=== PATIENT | male | born 1945 | race Caucasian/White ===

== ENCOUNTER 2016-10-09 11:24 | Day surgery (SDC) | payer MEDICARE ==
[~2016-10-09] VITALS: Ht 185.4 cm; Wt 116.6 kg
[2016-10-09] MEDS ORDERED: NS 1000P @30 MLS/HR (KVO) IV SCH (12:00)
[2016-10-09 12:05] VITALS: BP 145/87; PULSE 70; RESP 16; TEMP 98.2; O2SAT 96
[2016-10-09] MEDS ORDERED: BUME0.5T PO (12:13)
[2016-10-09] MEDS ORDERED: ISOS60TA PO (12:13)
[2016-10-09] MEDS ORDERED: ASPI81CH PO (12:13)
[2016-10-09] MEDS ORDERED: ATOR10TA15 PO (12:13)
[2016-10-09] MEDS ORDERED: LISI40TA PO (12:13)
[2016-10-09] MEDS ORDERED: OMEP20CA2 PO (12:13)
[2016-10-09] MEDS ORDERED: MULT1CHW70 PO (12:13)
[2016-10-09] MEDS ORDERED: ALFU10TA2 PO (12:13)
[2016-10-09] MEDS ORDERED: LATA.005%O EACH EYE (12:13)
[2016-10-09] MEDS ORDERED: METO25TA3 PO (12:13)
[2016-10-09] MEDS ORDERED: APIX5TAB PO (12:13)
[2016-10-09 12:29] LABS: AUTOMATED NEUTROPHIL # 2.8 TH/MM3 (1.8-7.7); BASOPHIL % 0.5 % (0.0-2.0); EOSINOPHIL # 0.2 TH/MM3 (0-0.4); EOSINOPHIL % 4.2 % (0.0-4.0); HEMATOCRIT 40.3 % (39.0-51.0); HEMO FLAGS DIFF FINAL; LYMPH % 32.7 % (9.0-44.0); LYMPHOCYTE # 1.6 TH/MM3 (1.0-4.8); MEAN CORPUSCULAR HEMOGLOBIN 29.3 PG (27.0-34.0); MONO % 7.7 % (0.0-8.0); NEUT % 54.9 % (16.0-70.0); PLATELET COUNT 176 TH/MM3 (150-450); RED BLOOD COUNT 4.53 MIL/MM3 (4.50-5.90); RED CELL DISTRIBUTION WIDTH 12.8 % (11.6-17.2)
[2016-10-09 12:36] LABS: APTT (PATIENT) 25.6 SEC (24.3-30.1); INTERNATIONAL NORMALIZED RATIO 1.1 RATIO; PROTHROMBIN TIME - PATIENT 11.9 SEC (9.8-11.6)
[2016-10-09 12:40] LABS: BICARBONATE 26.8 MEQ/L (21.0-32.0)
[2016-10-09] MEDS ORDERED: HEPARIN-NS/PF INJ 500 ML ONE (13:45)
[2016-10-09] MEDS ORDERED: diphenhydrAMINE HCL 50 MG/ML VIAL ONE (13:46)
[2016-10-09] MEDS ORDERED: HYDROCORTISONE SOD SUCCINATE 100 MG VIAL ONE (13:46)
[2016-10-09] MEDS ORDERED: HEPARIN SODIUM - IV 10,000 UNITS/10 ML VIAL ONE (13:46)
[2016-10-09] MEDS ORDERED: VERAPAMIL HCL 5 MG/2 ML VIAL ONE (13:46)
[2016-10-09] MEDS ORDERED: NITROGLYCERIN INJ 5 ML ONE (13:46)
[2016-10-09] MEDS ORDERED: MIDAZOLAM HCL 2 MG/2 ML VIAL ONE (13:48)
[2016-10-09] MEDS ORDERED: RANO500 PO (14:51)
[2016-10-09] MEDS ORDERED: MISC INFORMATION XX ONE (15:00)
[2016-10-09] MEDS ORDERED: SODIUM CHLORIDE 0.9% FLUSH 5 ML FLUSH IVF PRN (15:00)
--- NOTE | 2016-10-09 15:07 | MA ---
cc: TEAGAN FREDERICK M.D. DATE: 10/09/2016 PROCEDURE Left heart catheterization, selective coronary angiography, left ventriculography. PROCEDURE NOTES The patient was brought to the cardiac catheterization laboratory in a fasting state after having signed informed consent. The right radial region was prepped and draped as per policy and anesthetized with 1% lidocaine. Arterial access was obtained via the right radial artery and a 6-Mauritanian sheath placed. Coronary arteriography was performed using a [place] catheter. Additional views were taken using a Gabe left 3.0 and a Gabe right 5.0 catheter. Left ventriculography was done using a multipurpose catheter. There were no apparent immediate complications. A TR band was applied to his right wrist to achieve good hemostasis. HEMODYNAMIC DATA Left ventricle 139 with an end-diastolic pressure of 19. Aorta 140/70 with a mean of 97. There was no significant transvalvular aortic gradient on pullback of the pigtail catheter. CORONARY ARTERIOGRAPHY The left main is a short vessel with no definite disease. The left anterior descending has 20% ostial stenosis. There appears to be a relatively long stent in the proximal LAD and there is mild diffuse re-stenosis of this stent up to 10% severity. The mid LAD has diffuse disease up to 10% severity. The distal LAD has minimal luminal irregularities. The LAD gives rise to a large branching diagonal which demonstrates a stent in its proximal portion. There is mild diffuse re-stenosis of the stent possibly up to 20% severity. The left circumflex is a small to medium size vessel giving rise to a large first obtuse marginal and relatively large second obtuse marginal. There appears to be a stent in the proximal portion of the first obtuse marginal and there is mild diffuse re-stenosis of this stent. At the ostium of the first obtuse marginal there is 50-60% stenosis. The second obtuse marginal has mild disease at its ostium and in its midportion where there is up to 15% stenosis. The mid left circumflex, right before the takeoff of the second obtuse marginal, has 30-40% tubular stenosis. The right coronary artery is a large dominant vessel with overall diffuse mild luminal irregularities resulting in up to 15-20% stenosis except in the distal vessel, right after the takeoff of a large posterior descending artery, where there is 60-70% stenosis. LEFT VENTRICULOGRAPHY Contrast injection of the left ventricle reveals no definite segmental wall motion abnormalities. Ejection fraction is estimated at 50%. CONCLUSIONS 1. Overall mild to moderate three-vessel coronary artery disease with persistent patency of proximal LAD, proximal diagonal, proximal obtuse marginal stents. 2. Low normal left ventricular systolic function with estimated ejection fraction of 50%. DISCUSSION The patient has borderline disease in the distal right coronary, right after the takeoff of the posterior descending artery. This region would be difficult to stent without plaque shift into the large posterior descending artery. He will be treated medically. This distal vessel also supplies a relatively small territory. MD TRISTAN Napoles/FARAZ /2:43 PM /2:56 PM MTDD
[2016-10-09] MEDS ORDERED: IODIXANOL 320 MG/ML 100 ML VIAL (for Cath Lab) OTHER ONE (16:22)
[2016-10-09] MEDS ORDERED: SODIUM CHLORIDE 0.9% FLUSH 5 ML FLUSH IVF SCH (21:00)
--- NOTE | 2016-10-10 21:23 | EKG ---
Date Performed: 10/09/2016 Time Performed: 12:31:20 PTAGE: 70 years EKG: Demand pacing LVH with secondary repolarization abnormality Extensive ST-T changes may be d ue to hypertrophy and/or ischemia Abnormal ECG NO PREVIOUS TRACING DOCTOR: Simón Barron Interpretating Date/Time 10/10/2016 21:11:24
== END 2016-10-09 21:18 | disposition home or self-care (01) ==
LOC: HDOC 11:24 → HDIC 11:26 → HDOC 21:18
PROVIDERS: ATTEND Internal Medicine Cardiovascular Disease
DX: I25.10 Atherosclerotic heart disease of native coronary artery without angina pectoris (principal)
CPT/HCPCS: 80048; 85025; 85610; 85730; 93005; 93458; C1769; C1893; J1200; J1644; J1720; J2250; J3010; J7030; Q9967

== ENCOUNTER 2016-10-16 06:34 | Day surgery (SDC) | payer MEDICARE ==
[~2016-10-16 06:34] MED LIST: ALFU10TA2 PO; APIX5TAB PO; ASPI81CH PO; ATOR10TA15 PO; BUME0.5T PO; ISOS60TA PO; LATA.005%O EACH EYE; LISI40TA PO; METO25TA3 PO; MULT1CHW70 PO; OMEP20CA2 PO; RANO500 PO
[2016-10-16] MEDS ORDERED: RANO500 PO (07:42)
[2016-10-16] MEDS ORDERED: INSULIN HUMAN REGULAR 1,000 UNITS/10 ML VIAL SQ PRN (08:30)
[2016-10-16] MEDS ORDERED: METOPROLOL TARTRATE 25 MG TAB PO PRN (08:30)
[2016-10-16] MEDS ORDERED: LACTATED RINGER'S 1000 ML IV SCH (08:30)
[2016-10-16] MEDS ORDERED: SODIUM CHLORID 0.9% 500 ML IV SCH (08:30)
[2016-10-16] MEDS ORDERED: PROPOFOL 200 MG/20 ML AMP IV ONE (12:26)
--- NOTE | 2016-10-16 16:15 | MR ---
cc: TULIO FREDERICK DATE: 10/16/2016 PROCEDURE Electrical cardioversion of atrial tachycardia/flutter. PROCEDURE NOTE The patient was brought to the DOC Unit in a fasting state after having signed informed consent. His underlying rhythm was verified by interrogation of his pacemaker. The rhythm is shown to be an atrial tachycardia/flutter with an atrial rate of approximately 212 beats per minute. The patient was sedated by the Anesthesiology staff. Then, 200 synchronized joules were delivered converting the patient to an atrial sensed ventricular paced rhythm. There were no apparent immediate complications. CONCLUSION0 Successful electrical cardioversion of atrial tachycardia/flutter to sinus rhythm, MD TRISTAN Napoles/CARL /3:52 PM /4:22 PM GM
--- NOTE | 2016-10-18 17:02 | EKG ---
Date Performed: 10/16/2016 Time Performed: 08:59:16 PTAGE: 70 years EKG: Atrial pacing Prolonged QT interval LVH with secondary repolarization abnormality Extensive ST-T changes may be due to hypertrophy and/or ischemia Abnormal ECG PREVIOUS TRACING : 10/16/2016 07.18 Compared to the previous tracing, Ventricular pacing is no longer present DOCTOR: Bahman Quinones Interpretating Date/Time 10/18/2016 17:00:07
--- NOTE | 2016-10-18 17:02 | EKG ---
Date Performed: 10/16/2016 Time Performed: 07:18:38 PTAGE: 70 years EKG: Ventricular pacing Abnormal ECG PREVIOUS TRACING : 10/09/2016 12.31 Compared to prior tracing no significant change DOCTOR: Bahman Quinones Interpretating Date/Time 10/18/2016 17:01:18
== END 2016-10-16 09:56 | disposition home or self-care (01) ==
LOC: HDOC 06:34 → HDIC 06:35 → HDOC 09:56
PROVIDERS: ATTEND Internal Medicine Cardiovascular Disease
DX: I48.0 Paroxysmal atrial fibrillation (principal); I25.10 Atherosclerotic heart disease of native coronary artery without angina pectoris; I10 Essential (primary) hypertension; E78.5 Hyperlipidemia, unspecified; I42.9 Cardiomyopathy, unspecified
CPT/HCPCS: 92960; 93005

== ENCOUNTER 2017-07-22 12:51 | Day surgery (SDC) | payer MEDICARE ==
[~2017-07-22] VITALS: Ht 185.4 cm; Wt 118.5 kg
[2017-07-22] MEDS ORDERED: IOHEXOL 350 MG/ML 100 ML BTL (for Cath Lab) OTHER ONE (12:52)
[2017-07-22 13:41] VITALS: BP 159/89; PULSE 86; RESP 18; TEMP 98.5; O2SAT 95
[2017-07-22] MEDS ORDERED: MULTTAB67 PO (13:43)
[2017-07-22] MEDS ORDERED: NS 1000P @30 MLS/HR (KVO) IV SCH (14:15)
[2017-07-22 14:30] LABS: PROTHROMBIN TIME - PATIENT 11.5 SEC (9.8-11.6)
[2017-07-22 14:39] LABS: CALCIUM 8.7 MG/DL (8.5-10.1); CREATININE 0.77 MG/DL (0.60-1.30)
[2017-07-22] MEDS ORDERED: MIDAZOLAM HCL 2 MG/2 ML VIAL ONE (15:05)
[2017-07-22] MEDS ORDERED: BIVALIRUDIN 250 MG VIAL ONE (15:05)
[2017-07-22] MEDS ORDERED: HEPARIN-NS/PF INJ 1,000 ML ONE (15:05)
[2017-07-22] MEDS ORDERED: HYDROCORTISONE SOD SUCCINATE 100 MG VIAL ONE (15:06)
[2017-07-22 15:10] LABS: AUTOMATED NEUTROPHIL # 3.5 TH/MM3 (1.8-7.7); BASOPHIL % 0.4 % (0.0-2.0); EOSINOPHIL # 0.3 TH/MM3 (0-0.4); EOSINOPHIL % 4.6 % (0.0-4.0); HEMATOCRIT 41.6 % (39.0-51.0); HEMOGLOBIN 13.7 GM/DL (13.0-17.0); LYMPH % 26.8 % (9.0-44.0); LYMPHOCYTE # 1.6 TH/MM3 (1.0-4.8); MEAN CELL VOLUME 91.1 FL (80.0-100.0); MEAN CORPUSCULAR HEMOGLOBIN 30.1 PG (27.0-34.0); MEAN CORPUSCULAR HGB CONC 33.1 % (32.0-36.0); MEAN PLATELET VOLUME 8.6 FL (7.0-11.0); MONO % 8.6 % (0.0-8.0); MONOCYTE # 0.5 TH/MM3 (0-0.9); NEUT % 59.6 % (16.0-70.0); PLATELET COUNT 181 TH/MM3 (150-450); RED BLOOD COUNT 4.56 MIL/MM3 (4.50-5.90); RED CELL DISTRIBUTION WIDTH 12.8 % (11.6-17.2); WHITE BLOOD COUNT 5.8 TH/MM3 (4.0-11.0)
[2017-07-22] MEDS ORDERED: HEPARIN SODIUM - IV 10,000 UNITS/10 ML VIAL ONE (15:26)
[2017-07-22] MEDS ORDERED: ADENOSINE STRESS TEST INJ 90 MG/30 ML VIAL ONE (15:26)
--- NOTE | 2017-07-22 16:16 | CATHPROC ---
[facility] HIS Report Study Information Study Number Admission Scheduled Start Study Start [id number] Jul 22 2017 12:51PM 07/22/2017 Jul 22 2017 2:59PM [facility] Cardiac Pacer/ICD Admit Source Facility Department Other [facility] - Business Mgr Physician and Clinical Staff Initial eG[employer] Yacht Rigger Juan Ramon RN, David RecordGael Lubin,RT(R) Scrub Shankar Ventura,RT(R) Procedures Performed Procedure Location (Site) Vessel Name Angiogram LV LV Ventricle Coronary Angiograms LCA Left Coronary Coronary Angiograms RCA Right Coronary L Heart Cath Wire insertion Fem Art (right) Femoral Art Equipment Time Physics Tutor Description Size Mfg Part Number Used/Scraped TRANSDUCER, TRUWAVE [id number] 15:16 BAZZI POLK * Used W/STOCKCOCK *[id number] VASCADE, FR6 CLOSURE SYSTEM [id number] 16:02 mymxlog MEDICAL FR 6\7 Used TAVR *[id number] TAVR [id number] *[id number] *[id number] PIGTAIL ANG. 145 INFINITI [id number] CATHETER *[id number] 15:16 [employer] INDUSTRIES PACK, CCL CUSTOM * Used *[id number] 15:16 [employer] PACER PEN, SKIN DUAL W/ RULER * Used *[id number] 15:16 [employer] MEDICAL SHEATH, FR6.5 PRELUDE 11CM FR 6.5 038ACT Used *[id number] 15:16 [employer] MEDICAL WIRE, 3MMJ .035 180CM 180CM Used *[id number] 15:16 NAMIC MANIFOLD, 4 PORT * Used *[id number] 15:16 NYCOMED OMNIPAQUE, 350 MG, 150ML 150ML [id number] Used 15:59 NYCOMED OMNIPAQUE, 350 MG, 50ML 50ML [id number] Used [id number] 15:16 [employer]NELL[employer] MEDICAL BLANKET,WARM AIR CCL * Used *[id number] 15:40 [place] PRIME WIRE, VERRATA 185CM 185CM 01206 *[id number] Used Equipment Model, Serial, Lot Number and Expiration Data Description Model Number Serial Number Lot Number Expiration Date PRIME WIRE, VERRATA 185CM [id number] 05-22-2020 History: Allergies Allergy Reaction shellfish derived History: Risk Factors Family History of Hypertension Dyslipidemia Previous LA Previous Heart Failure Premature CAD Yes Yes No No No Prior Valve Prior PCI Prior PCIDate Prior CABG Surgery No Yes 10/09/2016 No Cerebrovascular Peripheral Artery Chronic Lung On Dialysis Diabetes Diabetes Therapy Disease Disease Disease No No No No Yes Diet History: CV Disease Selection Items Known CAD History: Stress Tests Stress or Imaging Studies Performed No History: Other Disease Selection Items CAD HTN History: Other Current Smoker Method Quit Packs a Day Years Used Pack Years No Cigarettes 48 Years Ago 1 5 5 Labs Hgb (g/dl) Hct (%) RBC (MIL/MM3) WBC (l/cumm) Platelets (thousands) 11.60-17.00 35.00-51.00 4.00-5.90 4.00-11.00 150.00-450.00 13.7 41.6 4.5 5.8 181 Glucose (mg/dl) BUN (mg/dl) Creatinine (mg/dl) BUN:Creatinine (1:x) 74.00-106.00 7.00-18.00 0.50-1.30 10.00-20.00 106 17 0.7 24.3 Na (meq/l) K (meq/l) Cl (meq/l) CO2 (mmol/L) Ca (mg/dl) 136.00-145.00 3.50-5.10 98.00-107.00 21.00-32.00 8.50-10.10 141 4.6 108 26 8.7 PT (sec) PTT (sec) INR (PTT:PT) 9.80-11.60 24.30-30.10 0.90-1.10 11.5 23.8 1 CPK-MB (ng/ML) 0.50-3.60 Not Drawn Medication Medication Total Dose (Bolus/Oral) Medication Total Dosage/Unit 1% XYLOCAINE 20 mL FENTANYL 100 mcg HEPARIN 8500 units SOLU-CORTEF 50 mg VERSED 2 mg Medications (Bolus/Oral) Medication Time Given Dosage/Unit Administered By Reason SOLU-CORTEF 07/22/2017 3:20:16 PM 50 mg David Delatorre RN 50 mg SOLU-CORTEF given in lab by David Delatorre RN in Right Hand via Peripheral IV. VERSED 07/22/2017 3:32:27 PM 2 mg David Delatorre RN 2 mg VERSED given in lab by David Delatorre RN in Right Hand via Peripheral IV. 1% XYLOCAINE 07/22/2017 3:33:02 PM 20 mL Heron, Geoff 20 mL 1% XYLOCAINE given in lab by Geoff Shelby in Right Groin via Subcutaneous. FENTANYL 07/22/2017 3:33:45 PM 50 mcg Heron, Geoff 50 mcg FENTANYL given in lab by Geoff Shelby in Right Hand via Peripheral IV. HEPARIN 07/22/2017 3:36:12 PM 8500 units David Delatorre RN 8500 units HEPARIN given in lab by David Delatorre RN in Right Hand via Peripheral IV. FENTANYL 07/22/2017 3:47:30 PM 50 mcg Heron, Geoff 50 mcg FENTANYL given in lab by Geoff Shelby in Right Hand via Peripheral IV. Medication (Drip) Medication Time Given Dosage/Unit Concentration/Unit Diluent (ml) Solution ADENOSINE DRIP 07/22/2017 3:52:21 PM 140 mcg/kg/min 90 mg 90 NaCl .9 140 mcg/kg/min ADENOSINE DRIP given in lab by David Delatorre RN in Right Hand via Peripheral IV. Pump/D rip Flow = 995.4 ml/hr using NaCl .9 with a concentration of 90 mg in 90 ml. ADENOSINE DRIP 07/22/2017 3:55:29 PM 140 units/hr 0 D5W STOPPED 140 units/hr ADENOSINE DRIP STOPPED given in lab by David Delatorre RN. Pump/Drip Flow = 0 ml/hr using D 5W. IV Solutions 07/22/2017 2:59:04 PM 0 mL (IV) 500 NaCl .9 IV Solutions given in lab by David Delatorre RN in Right Hand via Peripheral IV. Pump/Drip Flow = 20 ml/ hr using NaCl .9. Initial Case Assessment Cardiovascular HR Rhythm NIBP Chest Pain 70 Paced 157/87 0 Edema Present Skin color Skin None Normal Warm Dry Circulatory - Right Pulses Dorsalis Pedis Femoral 2 2 Scale (0,1,2,3,4,d) Circulatory - Left Pulses Dorsalis Pedis Femoral 2 2 Scale (0,1,2,3,4,d) Neurological State Oriented to time-place- Alert Moves all extremities person Respiration - General Respiration Rate SpO2 (%) O2 (lpm) (B/min) 27 97 0 Final Case Assessment Cardiovascular HR Rhythm NIBP Chest Pain 79 Paced 138/76 0 Edema Present Skin color Skin None Normal Warm Dry Circulatory - Right Pulses Dorsalis Pedis Femoral 2 2 Scale (0,1,2,3,4,d) Circulatory - Left Pulses Dorsalis Pedis Femoral 2 2 Scale (0,1,2,3,4,d) Neurological State Oriented to time-place- Alert Moves all extremities person Respiration - General Respiration Rate SpO2 (%) O2 (lpm) (B/min) 27 97 0 Chronological Log Time Study Chronological Log 14:58:44 Patient arrived via Bed. 14:58:45 Patient Name, D.O.B, / Armband Verified By R.N. 14:58:45 Consent signed by the physician and the patient and verified by the Business Mgr staff. 14:58:46 Pre-op and post- op instructions given; patient acknowledges understanding of instructions. Verbal Stimulation=~VERBAL~ Physical Stimulation=~PHYSICAL~ Airway=~AIRWAY~ Respiration=~RESPIR ATION~ 14:58:47 TOTAL=~TOTAL~. (0=absent, 1=limited, 2=present) 14:58:48 Presedation assessment performed by Business Mgr RN. 14:58:56 Patient has been NPO for More than 6Hrs. 14:58:57 Skin Breakdown- 14:58:59 Patient Warmer Placed on the Table. 14:59:00 Eli Prominences Protected 14:59:02 A # ~SIZE~ IV was noted in the Antecubital (left). Grade = ~GRADE~ Not working, going to re start another IV. 14:59:04 IV Solutions given in lab by David Delatorre RN in Right Hand via Peripheral IV. Pump/Drip Art w = 20 ml/hr using NaCl .9. 14:59:08 History and physical on the chart or being dictated. 15:13:48 Reference ECG taken 15:16:50 A # 20 IV was noted in the Hand (right). Grade = 0 IV Started in Lab Assessment: Initial Case, HR=70 BPM, Rhythm=Paced, OKZR=602/87 mmhg, Chest Pain=0, Edema=None, Color=Normal, Skin = Warm, Dry Right Pulses: Barrett Ped=2, Femoral=2 15:18:16 Left Pulses: Barrett Ped=2, Femoral=2 Neurological: State=Alert, Ox3, DENT Respiration: Resp=27 B/min, SpO2=97 %, O2=0 lpm Vitals capture started with the following parameters, Patient=Adult, Interval=5 min, Initial Pr qfredw=602 mmHg, 15:18:18 Deflation Rate=5 mmHg, Cuff placed on Right Arm 15:18:22 Bilateral groins prepped with 2% chlorhexidine, and draped after a 3 minute waiting time. 15:19:30 HR=63 bpm, UVSU=956/87 mmhg, SpO2=97.0 %, Resp=21 B/min, Pain=0, Dixie=10, Wilson=2 15:20:16 50 mg SOLU-CORTEF given in lab by David Delatorre RN in Right Hand via Peripheral IV. 15:22:09 Pressure channel 1 zeroed. 15:24:01 HR=72 bpm, NQTE=663/99 mmhg, SpO2=97.0 %, Resp=10 B/min, Pain=0, Dixie=10, Wilson=2 15:25:15 MD paged 15:29:02 HR=81 bpm, PBDI=486/83 mmhg, SpO2=97.0 %, Resp=8 B/min, Pain=0, Dixie=10, Wilson=2 15:30:13 MD arrived. Time Out. Correct patient, correct procedure, correct physician, power injector loaded, or not loaded with contrast with 15:32:00 surgical team present. Time Out Concurred by MD and individual staff in procedure. 15:32:27 2 mg VERSED given in lab by David Delatorre RN in Right Hand via Peripheral IV. 15:32:30 Case Start 15:33:02 20 mL 1% XYLOCAINE given in lab by Geoff Shelby in Right Groin via Subcutaneous. 15:33:45 50 mcg FENTANYL given in lab by Geoff Shelby in Right Hand via Peripheral IV. 15:33:53 Access site was Right Femoral Artery. 15:34:03 HR=82 bpm, EJAL=142/83 mmhg, SpO2=96.0 %, Resp=12 B/min, Pain=0, Dixie=10, Wilson=2 15:34:16 A SHEATH, FR6.5 PRELUDE 11CM FR 6.5 was advanced into the Fem Art (right) using the Percuta neous technique. A JL 4.0 INFINITI CATHETER FR 6 was advanced over a wire. OMNIPAQUE, 350 MG, 150ML 150ML was us ed for 15:35:29 injections. 15:36:12 8500 units HEPARIN given in lab by David Delatorre RN in Right Hand via Peripheral IV. Recorded Pressure: Ao, HR=82, Condition=Condition 1 15:37:03 (Aorta) Ao 132/69/96 15:37:44 The LCA was injected and visualized at various angles. OMNIPAQUE, 350 MG, 150ML 150ML used . 15:39:00 HR=79 bpm, JXMV=504/84 mmhg, SpO2=95.0 %, Resp=10 B/min, Pain=0, Dixie=10, Wilson=2 15:39:10 Catheter was removed A HS SH GUIDE CATHETER FR 6 was advanced over a wire. OMNIPAQUE, 350 MG, 150ML 150ML was used f or 15:40:02 injections. 15:41:01 The RCA was injected and visualized at various angles. OMNIPAQUE, 350 MG, 150ML 150ML used . 15:42:03 Activated Clotting Time Drawn 15:43:55 HR=87 bpm, KHCJ=363/107 mmhg, SpO2=97.0 %, Resp=9 B/min, Pain=0, Dixie=10, Wilson=2 15:45:10 A PRIME WIRE, VERRATA 185CM 185CM was inserted via Fem Art (right). 15:46:55 ACT (Normal Range 90-180) = 264 15:47:30 50 mcg FENTANYL given in lab by Geoff Shelby in Right Hand via Peripheral IV. 15:49:39 HR=90 bpm, KGAT=162/79 mmhg, SpO2=96.0 %, Resp=9 B/min, Pain=0, Dixie=10, Wilson=2 140 mcg/kg/min ADENOSINE DRIP given in lab by David Delatorre RN in Right Hand via Peripheral IV. Pump/Drip Flow = 15:52:21 995.4 ml/hr using NaCl .9 with a concentration of 90 mg in 90 ml. 15:53:53 Flow Wire was was placed in the RCA. The FFR measures 93 percent. The IFR measures 99 Perc ent. 15:53:59 HR=64 bpm, EIFQ=523/80 mmhg, SpO2=96.0 %, Resp=16 B/min, Pain=0, Dixie=10, Wilson=2 15:55:29 140 units/hr ADENOSINE DRIP STOPPED given in lab by David Delatorre RN. Pump/Drip Flow = 0 ml/ hr using D5W. 15:56:45 Wire removed 15:56:58 Catheter was removed A PIGTAIL ANG. 145 INFINITI CATHETER FR 6 was advanced over a wire. OMNIPAQUE, 350 MG, 150ML 15 0ML was 15:58:18 used for injections. Recorded Pressure: LV, HR=80, Condition=Condition 1 15:58:43 (Left Ventricle) LV 141/4/20 15:59:00 HR=78 bpm, SMVT=428/76 mmhg, SpO2=95.0 %, Resp=11 B/min, Pain=0, Dixie=10, Wilson=2 15:59:03 The LV was injected at 10 cc/sec for a total of 30. OMNIPAQUE, 350 MG, 50ML 50ML used. Recorded Pressure: LV, Ao, HR=80, Condition=Condition 1 16:00:07 (Left Ventricle) LV 161/-3/16, (Aorta) Ao 148/69/105 16:00:16 Catheter was removed 16:01:59 An injection in the Fem Art (right) was made through the SHEATH, FR6.5 PRELUDE 11CM FR 6.5. 16:02:07 VASCADE, FR6 CLOSURE SYSTEM TAVR FR 6\7 placement in the Fem Art (right) 16:02:52 Case End Assessment: Final Case, HR=79 BPM, Rhythm=Paced, WWJQ=800/76 mmhg, Chest Pain=0, Edema=None, Color=Normal, Skin = Warm, Dry Right Pulses: Barrett Ped=2, Femoral=2 16:02:55 Left Pulses: Barrett Ped=2, Femoral=2 Neurological: State=Alert, Ox3, DENT Respiration: Resp=27 B/min, SpO2=97 %, O2=0 lpm 16:03:06 Catheter(s) removed without difficulty 16:03:10 Sterile dressing applied to site 16:03:11 No case complications noted. 16:03:12 Cine recording checked. 16:03:16 Bedside Report will be given. 16:03:17 Implantable Device card placed in patient's chart. 16:03:18 Contrast Scanned 16:03:26 A Left Heart Cath was performed. 16:04:03 HR=68 bpm, GUOP=995/73 mmhg, SpO2=94.0 %, Resp=18 B/min, Pain=0, Dixie=10, Wilson=2 16:08:53 Vitals capture stopped. End Study - Contrast Media Used In Study Contrast Total Opened (mL) Total Used (mL) Total Wasted (mL) Omnipaque 100 100 0 End Study - Maximum Contrast Load Max Contrast Load (mL) 846.4 End Study - Radiation Exposure Fluoro Time (minutes) 4.5 End Study - Patient Disposition Complications Transferred To Interventional Outcome No Business Mgr Holding No attempt made
--- NOTE | 2017-07-22 16:16 | CATHPROC ---
[facility] HIS Report Study Information Study Number Admission Scheduled Start Study Start [id number] Jul 22 2017 12:51PM 07/22/2017 Jul 22 2017 2:59PM [place] Service Cardiac Pacer/ICD Admit Source Facility Department Other [facility] - Field Operations Supervisor Physician and Clinical Staff Initial Geoff Cagle Commercial Real Estate Assistant Juan Ramon RN, David RecordGael Lubin,RT(R) Scrub Shankar Ventura,RT(R) Procedures Performed Procedure Location (Site) Vessel Name Angiogram LV LV Ventricle Coronary Angiograms LCA Left Coronary Coronary Angiograms RCA Right Coronary L Heart Cath Wire insertion Fem Art (right) Femoral Art Equipment Time Printer Slotter Operator Description Size Mfg Part Number Used/Scraped TRANSDUCER, TRUWAVE [id number] 15:16 BAZZI POLK * Used W/STOCKCOCK *[id number] VASCADE, FR6 CLOSURE SYSTEM [id number] 16:02 [employer] MEDICAL FR 6\7 Used TAVR *[id number] TAVR [id number] *[id number] *[id number] PIGTAIL ANG. 145 INFINITI [id number] CATHETER *[id number] 15:16 [employer] INDUSTRIES PACK, CCL CUSTOM * Used *[id number] 15:16 [employer] PACER PEN, SKIN DUAL W/ RULER * Used *[id number] 15:16 [employer] MEDICAL SHEATH, FR6.5 PRELUDE 11CM FR 6.5 038ACT Used *[id number] 15:16 [employer] MEDICAL WIRE, 3MMJ .035 180CM 180CM Used *[id number] 15:16 NAMIC MANIFOLD, 4 PORT * Used *[id number] 15:16 [employer] OMNIPAQUE, 350 MG, 150ML 150ML [id number] Used 15:59 [employer] OMNIPAQUE, 350 MG, 50ML 50ML [id number] Used [id number] 15:16 [place] MED[employer] BLANKET,WARM AIR CCL * Used *[id number] 15:40 [place] PRIME WIRE, VERRATA 185CM 185CM 70571 *[id number] Used Equipment Model, Serial, Lot Number and Expiration Data Description Model Number Serial Number Lot Number Expiration Date PRIME WIRE, VERRATA 185CM [id number] 05-22-2020 History: Allergies Allergy Reaction shellfish derived History: Risk Factors Family History of Hypertension Dyslipidemia Previous HI Previous Heart Failure Premature CAD Yes Yes No No No Prior Valve Prior PCI Prior PCIDate Prior CABG Surgery No Yes 10/09/2016 No Cerebrovascular Peripheral Artery Chronic Lung On Dialysis Diabetes Diabetes Therapy Disease Disease Disease No No No No Yes Diet History: CV Disease Selection Items Known CAD History: Stress Tests Stress or Imaging Studies Performed No History: Other Disease Selection Items CAD HTN History: Other Current Smoker Method Quit Packs a Day Years Used Pack Years No Cigarettes 48 Years Ago 1 5 5 Labs Hgb (g/dl) Hct (%) RBC (MIL/MM3) WBC (l/cumm) Platelets (thousands) 11.60-17.00 35.00-51.00 4.00-5.90 4.00-11.00 150.00-450.00 13.7 41.6 4.5 5.8 181 Glucose (mg/dl) BUN (mg/dl) Creatinine (mg/dl) BUN:Creatinine (1:x) 74.00-106.00 7.00-18.00 0.50-1.30 10.00-20.00 106 17 0.7 24.3 Na (meq/l) K (meq/l) Cl (meq/l) CO2 (mmol/L) Ca (mg/dl) 136.00-145.00 3.50-5.10 98.00-107.00 21.00-32.00 8.50-10.10 141 4.6 108 26 8.7 PT (sec) PTT (sec) INR (PTT:PT) 9.80-11.60 24.30-30.10 0.90-1.10 11.5 23.8 1 CPK-MB (ng/ML) 0.50-3.60 Not Drawn Medication Medication Total Dose (Bolus/Oral) Medication Total Dosage/Unit 1% XYLOCAINE 20 mL FENTANYL 100 mcg HEPARIN 8500 units SOLU-CORTEF 50 mg VERSED 2 mg Medications (Bolus/Oral) Medication Time Given Dosage/Unit Administered By Reason SOLU-CORTEF 07/22/2017 3:20:16 PM 50 mg David Delatorre RN 50 mg SOLU-CORTEF given in lab by David Delatorre RN in Right Hand via Peripheral IV. VERSED 07/22/2017 3:32:27 PM 2 mg David Delatorre RN 2 mg VERSED given in lab by David Delatorre RN in Right Hand via Peripheral IV. 1% XYLOCAINE 07/22/2017 3:33:02 PM 20 mL Heron, Geoff 20 mL 1% XYLOCAINE given in lab by Geoff Shelby in Right Groin via Subcutaneous. FENTANYL 07/22/2017 3:33:45 PM 50 mcg Heron, Geoff 50 mcg FENTANYL given in lab by Geoff Shelby in Right Hand via Peripheral IV. HEPARIN 07/22/2017 3:36:12 PM 8500 units David Delatorre RN 8500 units HEPARIN given in lab by David Delatorre RN in Right Hand via Peripheral IV. FENTANYL 07/22/2017 3:47:30 PM 50 mcg Heron, Geoff 50 mcg FENTANYL given in lab by Geoff Shelby in Right Hand via Peripheral IV. Medication (Drip) Medication Time Given Dosage/Unit Concentration/Unit Diluent (ml) Solution ADENOSINE DRIP 07/22/2017 3:52:21 PM 140 mcg/kg/min 90 mg 90 NaCl .9 140 mcg/kg/min ADENOSINE DRIP given in lab by David Delatorre RN in Right Hand via Peripheral IV. Pump/D rip Flow = 995.4 ml/hr using NaCl .9 with a concentration of 90 mg in 90 ml. ADENOSINE DRIP 07/22/2017 3:55:29 PM 140 units/hr 0 D5W STOPPED 140 units/hr ADENOSINE DRIP STOPPED given in lab by David Delatorre RN. Pump/Drip Flow = 0 ml/hr using D 5W. IV Solutions 07/22/2017 2:59:04 PM 0 mL (IV) 500 NaCl .9 IV Solutions given in lab by David Dealtorre RN in Right Hand via Peripheral IV. Pump/Drip Flow = 20 ml/ hr using NaCl .9. Initial Case Assessment Cardiovascular HR Rhythm NIBP Chest Pain 70 Paced 157/87 0 Edema Present Skin color Skin None Normal Warm Dry Circulatory - Right Pulses Dorsalis Pedis Femoral 2 2 Scale (0,1,2,3,4,d) Circulatory - Left Pulses Dorsalis Pedis Femoral 2 2 Scale (0,1,2,3,4,d) Neurological State Oriented to time-place- Alert Moves all extremities person Respiration - General Respiration Rate SpO2 (%) O2 (lpm) (B/min) 27 97 0 Final Case Assessment Cardiovascular HR Rhythm NIBP Chest Pain 79 Paced 138/76 0 Edema Present Skin color Skin None Normal Warm Dry Circulatory - Right Pulses Dorsalis Pedis Femoral 2 2 Scale (0,1,2,3,4,d) Circulatory - Left Pulses Dorsalis Pedis Femoral 2 2 Scale (0,1,2,3,4,d) Neurological State Oriented to time-place- Alert Moves all extremities person Respiration - General Respiration Rate SpO2 (%) O2 (lpm) (B/min) 27 97 0 Chronological Log Time Study Chronological Log 14:58:44 Patient arrived via Bed. 14:58:45 Patient Name, D.O.B, / Armband Verified By R.N. 14:58:45 Consent signed by the physician and the patient and verified by the Field Operations Supervisor staff. 14:58:46 Pre-op and post- op instructions given; patient acknowledges understanding of instructions. Verbal Stimulation=~VERBAL~ Physical Stimulation=~PHYSICAL~ Airway=~AIRWAY~ Respiration=~RESPIR ATION~ 14:58:47 TOTAL=~TOTAL~. (0=absent, 1=limited, 2=present) 14:58:48 Presedation assessment performed by Field Operations Supervisor RN. 14:58:56 Patient has been NPO for More than 6Hrs. 14:58:57 Skin Breakdown- 14:58:59 Patient Warmer Placed on the Table. 14:59:00 Eli Prominences Protected 14:59:02 A # ~SIZE~ IV was noted in the Antecubital (left). Grade = ~GRADE~ Not working, going to re start another IV. 14:59:04 IV Solutions given in lab by David Delatorre RN in Right Hand via Peripheral IV. Pump/Drip Art w = 20 ml/hr using NaCl .9. 14:59:08 History and physical on the chart or being dictated. 15:13:48 Reference ECG taken 15:16:50 A # 20 IV was noted in the Hand (right). Grade = 0 IV Started in Lab Assessment: Initial Case, HR=70 BPM, Rhythm=Paced, EGOD=902/87 mmhg, Chest Pain=0, Edema=None, Color=Normal, Skin = Warm, Dry Right Pulses: Barrett Ped=2, Femoral=2 15:18:16 Left Pulses: Barrett Ped=2, Femoral=2 Neurological: State=Alert, Ox3, DENT Respiration: Resp=27 B/min, SpO2=97 %, O2=0 lpm Vitals capture started with the following parameters, Patient=Adult, Interval=5 min, Initial Pr hfoskm=201 mmHg, 15:18:18 Deflation Rate=5 mmHg, Cuff placed on Right Arm 15:18:22 Bilateral groins prepped with 2% chlorhexidine, and draped after a 3 minute waiting time. 15:19:30 HR=63 bpm, XFXK=112/87 mmhg, SpO2=97.0 %, Resp=21 B/min, Pain=0, Dixie=10, Wilson=2 15:20:16 50 mg SOLU-CORTEF given in lab by David Delatorre RN in Right Hand via Peripheral IV. 15:22:09 Pressure channel 1 zeroed. 15:24:01 HR=72 bpm, HLOR=061/99 mmhg, SpO2=97.0 %, Resp=10 B/min, Pain=0, Dixie=10, Wilson=2 15:25:15 MD paged 15:29:02 HR=81 bpm, GXFV=281/83 mmhg, SpO2=97.0 %, Resp=8 B/min, Pain=0, Dixie=10, Wilson=2 15:30:13 MD arrived. Time Out. Correct patient, correct procedure, correct physician, power injector loaded, or not loaded with contrast with 15:32:00 surgical team present. Time Out Concurred by MD and individual staff in procedure. 15:32:27 2 mg VERSED given in lab by aDvid Delatorre RN in Right Hand via Peripheral IV. 15:32:30 Case Start 15:33:02 20 mL 1% XYLOCAINE given in lab by Geoff Shelby in Right Groin via Subcutaneous. 15:33:45 50 mcg FENTANYL given in lab by Geoff Shelby in Right Hand via Peripheral IV. 15:33:53 Access site was Right Femoral Artery. 15:34:03 HR=82 bpm, LFJF=871/83 mmhg, SpO2=96.0 %, Resp=12 B/min, Pain=0, Dixie=10, Wilson=2 15:34:16 A SHEATH, FR6.5 PRELUDE 11CM FR 6.5 was advanced into the Fem Art (right) using the Percuta neous technique. A JL 4.0 INFINITI CATHETER FR 6 was advanced over a wire. OMNIPAQUE, 350 MG, 150ML 150ML was us ed for 15:35:29 injections. 15:36:12 8500 units HEPARIN given in lab by David Delatorre RN in Right Hand via Peripheral IV. Recorded Pressure: Ao, HR=82, Condition=Condition 1 15:37:03 (Aorta) Ao 132/69/96 15:37:44 The LCA was injected and visualized at various angles. OMNIPAQUE, 350 MG, 150ML 150ML used . 15:39:00 HR=79 bpm, VERV=742/84 mmhg, SpO2=95.0 %, Resp=10 B/min, Pain=0, Dixie=10, Wilson=2 15:39:10 Catheter was removed A HS SH GUIDE CATHETER FR 6 was advanced over a wire. OMNIPAQUE, 350 MG, 150ML 150ML was used f or 15:40:02 injections. 15:41:01 The RCA was injected and visualized at various angles. OMNIPAQUE, 350 MG, 150ML 150ML used . 15:42:03 Activated Clotting Time Drawn 15:43:55 HR=87 bpm, YJLE=821/107 mmhg, SpO2=97.0 %, Resp=9 B/min, Pain=0, Dixie=10, Wilson=2 15:45:10 A PRIME WIRE, VERRATA 185CM 185CM was inserted via Fem Art (right). 15:46:55 ACT (Normal Range 90-180) = 264 15:47:30 50 mcg FENTANYL given in lab by Geoff Shelby in Right Hand via Peripheral IV. 15:49:39 HR=90 bpm, MKUG=158/79 mmhg, SpO2=96.0 %, Resp=9 B/min, Pain=0, Dixie=10, Wilson=2 140 mcg/kg/min ADENOSINE DRIP given in lab by David Delatorre RN in Right Hand via Peripheral IV. Pump/Drip Flow = 15:52:21 995.4 ml/hr using NaCl .9 with a concentration of 90 mg in 90 ml. 15:53:53 Flow Wire was was placed in the RCA. The FFR measures 93 percent. The IFR measures 99 Perc ent. 15:53:59 HR=64 bpm, QWWZ=665/80 mmhg, SpO2=96.0 %, Resp=16 B/min, Pain=0, Dixie=10, Wilson=2 15:55:29 140 units/hr ADENOSINE DRIP STOPPED given in lab by David Delatorre RN. Pump/Drip Flow = 0 ml/ hr using D5W. 15:56:45 Wire removed 15:56:58 Catheter was removed A PIGTAIL ANG. 145 INFINITI CATHETER FR 6 was advanced over a wire. OMNIPAQUE, 350 MG, 150ML 15 0ML was 15:58:18 used for injections. Recorded Pressure: LV, HR=80, Condition=Condition 1 15:58:43 (Left Ventricle) LV 141/4/20 15:59:00 HR=78 bpm, UUYF=177/76 mmhg, SpO2=95.0 %, Resp=11 B/min, Pain=0, Dixie=10, Wilson=2 15:59:03 The LV was injected at 10 cc/sec for a total of 30. OMNIPAQUE, 350 MG, 50ML 50ML used. Recorded Pressure: LV, Ao, HR=80, Condition=Condition 1 16:00:07 (Left Ventricle) LV 161/-3/16, (Aorta) Ao 148/69/105 16:00:16 Catheter was removed 16:01:59 An injection in the Fem Art (right) was made through the SHEATH, FR6.5 PRELUDE 11CM FR 6.5. 16:02:07 VASCADE, FR6 CLOSURE SYSTEM TAVR FR 6\7 placement in the Fem Art (right) 16:02:52 Case End Assessment: Final Case, HR=79 BPM, Rhythm=Paced, PWFN=883/76 mmhg, Chest Pain=0, Edema=None, Color=Normal, Skin = Warm, Dry Right Pulses: Barrett Ped=2, Femoral=2 16:02:55 Left Pulses: Barrett Ped=2, Femoral=2 Neurological: State=Alert, Ox3, DENT Respiration: Resp=27 B/min, SpO2=97 %, O2=0 lpm 16:03:06 Catheter(s) removed without difficulty 16:03:10 Sterile dressing applied to site 16:03:11 No case complications noted. 16:03:12 Cine recording checked. 16:03:16 Bedside Report will be given. 16:03:17 Implantable Device card placed in patient's chart. 16:03:18 Contrast Scanned 16:03:26 A Left Heart Cath was performed. 16:04:03 HR=68 bpm, ZILD=999/73 mmhg, SpO2=94.0 %, Resp=18 B/min, Pain=0, Dixie=10, Wilson=2 16:08:53 Vitals capture stopped. End Study - Contrast Media Used In Study Contrast Total Opened (mL) Total Used (mL) Total Wasted (mL) Omnipaque 100 100 0 End Study - Maximum Contrast Load Max Contrast Load (mL) 846.4 End Study - Radiation Exposure Fluoro Time (minutes) 4.5 End Study - Patient Disposition Complications Transferred To Interventional Outcome No Field Operations Supervisor Holding No attempt made
--- NOTE | 2017-07-22 16:16 | CATHPROC ---
[facility] HIS Report Study Information Study Number Admission Scheduled Start Study Start [id number] Jul 22 2017 12:51PM 07/22/2017 Jul 22 2017 2:59PM [place] Service Cardiac Pacer/ICD Admit Source Facility Department Other [facility] - Medical Reimbursement Manager Physician and Clinical Staff Initial Geoff Cagel Wax Ball Molder Juan Ramon RN, David RecordGael Lubin,RT(R) Scrub Shankar Ventura,RT(R) Procedures Performed Procedure Location (Site) Vessel Name Angiogram LV LV Ventricle Coronary Angiograms LCA Left Coronary Coronary Angiograms RCA Right Coronary L Heart Cath Wire insertion Fem Art (right) Femoral Art Equipment Time Piano Technician Description Size Mfg Part Number Used/Scraped TRANSDUCER, TRUWAVE [id number] 15:16 BAZZI POLK * Used W/STOCKCOCK *[id number] VASCADE, FR6 CLOSURE SYSTEM [id number] 16:02 [employer] Systems MEDICAL FR 6\7 Used TAVR *[id number] TAVR [id number] *[id number] *[id number] PIGTAIL ANG. 145 INFINITI [id number] CATHETER *[id number] 15:16 [employer] INDUSTRIES PACK, CCL CUSTOM * Used *[id number] 15:16 [employer] PACER PEN, SKIN DUAL W/ RULER * Used *[id number] 15:16 [employer] MEDICAL SHEATH, FR6.5 PRELUDE 11CM FR 6.5 038ACT Used *[id number] 15:16 [employer] MEDICAL WIRE, 3MMJ .035 180CM 180CM Used *[id number] 15:16 NAMIC MANIFOLD, 4 PORT * Used *[id number] 15:16 [employer] OMNIPAQUE, 350 MG, 150ML 150ML [id number] Used 15:59 [employer] OMNIPAQUE, 350 MG, 50ML 50ML [id number] Used [id number] 15:16 [place] MEDICAL BLANKET,WARM AIR CCL * Used *[id number] 15:40 [employer] PRIME WIRE, VERRATA 185CM 185CM 55430 *[id number] Used Equipment Model, Serial, Lot Number and Expiration Data Description Model Number Serial Number Lot Number Expiration Date PRIME WIRE, VERRATA 185CM [id number] 05-22-2020 History: Allergies Allergy Reaction shellfish derived History: Risk Factors Family History of Hypertension Dyslipidemia Previous [place] Previous Heart Failure Premature CAD Yes Yes No No No Prior Valve Prior PCI Prior PCIDate Prior CABG Surgery No Yes 10/09/2016 No Cerebrovascular Peripheral Artery Chronic Lung On Dialysis Diabetes Diabetes Therapy Disease Disease Disease No No No No Yes Diet History: CV Disease Selection Items Known CAD History: Stress Tests Stress or Imaging Studies Performed No History: Other Disease Selection Items CAD HTN History: Other Current Smoker Method Quit Packs a Day Years Used Pack Years No Cigarettes 48 Years Ago 1 5 5 Labs Hgb (g/dl) Hct (%) RBC (MIL/MM3) WBC (l/cumm) Platelets (thousands) 11.60-17.00 35.00-51.00 4.00-5.90 4.00-11.00 150.00-450.00 13.7 41.6 4.5 5.8 181 Glucose (mg/dl) BUN (mg/dl) Creatinine (mg/dl) BUN:Creatinine (1:x) 74.00-106.00 7.00-18.00 0.50-1.30 10.00-20.00 106 17 0.7 24.3 Na (meq/l) K (meq/l) Cl (meq/l) CO2 (mmol/L) Ca (mg/dl) 136.00-145.00 3.50-5.10 98.00-107.00 21.00-32.00 8.50-10.10 141 4.6 108 26 8.7 PT (sec) PTT (sec) INR (PTT:PT) 9.80-11.60 24.30-30.10 0.90-1.10 11.5 23.8 1 CPK-MB (ng/ML) 0.50-3.60 Not Drawn Medication Medication Total Dose (Bolus/Oral) Medication Total Dosage/Unit 1% XYLOCAINE 20 mL FENTANYL 100 mcg HEPARIN 8500 units SOLU-CORTEF 50 mg VERSED 2 mg Medications (Bolus/Oral) Medication Time Given Dosage/Unit Administered By Reason SOLU-CORTEF 07/22/2017 3:20:16 PM 50 mg aDvid Delatorre RN 50 mg SOLU-CORTEF given in lab by David Delatorre RN in Right Hand via Peripheral IV. VERSED 07/22/2017 3:32:27 PM 2 mg David Delatorre RN 2 mg VERSED given in lab by David Delatorre RN in Right Hand via Peripheral IV. 1% XYLOCAINE 07/22/2017 3:33:02 PM 20 mL Heron, Geoff 20 mL 1% XYLOCAINE given in lab by Geoff Shelby in Right Groin via Subcutaneous. FENTANYL 07/22/2017 3:33:45 PM 50 mcg Heron, Geoff 50 mcg FENTANYL given in lab by Geoff Shelby in Right Hand via Peripheral IV. HEPARIN 07/22/2017 3:36:12 PM 8500 units David Delatorre RN 8500 units HEPARIN given in lab by David Delatorre RN in Right Hand via Peripheral IV. FENTANYL 07/22/2017 3:47:30 PM 50 mcg Heron, Geoff 50 mcg FENTANYL given in lab by Geoff Shelby in Right Hand via Peripheral IV. Medication (Drip) Medication Time Given Dosage/Unit Concentration/Unit Diluent (ml) Solution ADENOSINE DRIP 07/22/2017 3:52:21 PM 140 mcg/kg/min 90 mg 90 NaCl .9 140 mcg/kg/min ADENOSINE DRIP given in lab by David Delatorre RN in Right Hand via Peripheral IV. Pump/D rip Flow = 995.4 ml/hr using NaCl .9 with a concentration of 90 mg in 90 ml. ADENOSINE DRIP 07/22/2017 3:55:29 PM 140 units/hr 0 D5W STOPPED 140 units/hr ADENOSINE DRIP STOPPED given in lab by David Delatorre RN. Pump/Drip Flow = 0 ml/hr using D 5W. IV Solutions 07/22/2017 2:59:04 PM 0 mL (IV) 500 NaCl .9 IV Solutions given in lab by David Delatorre RN in Right Hand via Peripheral IV. Pump/Drip Flow = 20 ml/ hr using NaCl .9. Initial Case Assessment Cardiovascular HR Rhythm NIBP Chest Pain 70 Paced 157/87 0 Edema Present Skin color Skin None Normal Warm Dry Circulatory - Right Pulses Dorsalis Pedis Femoral 2 2 Scale (0,1,2,3,4,d) Circulatory - Left Pulses Dorsalis Pedis Femoral 2 2 Scale (0,1,2,3,4,d) Neurological State Oriented to time-place- Alert Moves all extremities person Respiration - General Respiration Rate SpO2 (%) O2 (lpm) (B/min) 27 97 0 Final Case Assessment Cardiovascular HR Rhythm NIBP Chest Pain 79 Paced 138/76 0 Edema Present Skin color Skin None Normal Warm Dry Circulatory - Right Pulses Dorsalis Pedis Femoral 2 2 Scale (0,1,2,3,4,d) Circulatory - Left Pulses Dorsalis Pedis Femoral 2 2 Scale (0,1,2,3,4,d) Neurological State Oriented to time-place- Alert Moves all extremities person Respiration - General Respiration Rate SpO2 (%) O2 (lpm) (B/min) 27 97 0 Chronological Log Time Study Chronological Log 14:58:44 Patient arrived via Bed. 14:58:45 Patient Name, D.O.B, / Armband Verified By R.N. 14:58:45 Consent signed by the physician and the patient and verified by the Medical Reimbursement Manager staff. 14:58:46 Pre-op and post- op instructions given; patient acknowledges understanding of instructions. Verbal Stimulation=~VERBAL~ Physical Stimulation=~PHYSICAL~ Airway=~AIRWAY~ Respiration=~RESPIR ATION~ 14:58:47 TOTAL=~TOTAL~. (0=absent, 1=limited, 2=present) 14:58:48 Presedation assessment performed by Medical Reimbursement Manager RN. 14:58:56 Patient has been NPO for More than 6Hrs. 14:58:57 Skin Breakdown- 14:58:59 Patient Warmer Placed on the Table. 14:59:00 Eli Prominences Protected 14:59:02 A # ~SIZE~ IV was noted in the Antecubital (left). Grade = ~GRADE~ Not working, going to re start another IV. 14:59:04 IV Solutions given in lab by David Delatorre RN in Right Hand via Peripheral IV. Pump/Drip Art w = 20 ml/hr using NaCl .9. 14:59:08 History and physical on the chart or being dictated. 15:13:48 Reference ECG taken 15:16:50 A # 20 IV was noted in the Hand (right). Grade = 0 IV Started in Lab Assessment: Initial Case, HR=70 BPM, Rhythm=Paced, LYJJ=442/87 mmhg, Chest Pain=0, Edema=None, Color=Normal, Skin = Warm, Dry Right Pulses: Barrett Ped=2, Femoral=2 15:18:16 Left Pulses: Barrett Ped=2, Femoral=2 Neurological: State=Alert, Ox3, DENT Respiration: Resp=27 B/min, SpO2=97 %, O2=0 lpm Vitals capture started with the following parameters, Patient=Adult, Interval=5 min, Initial Pr eyezbj=215 mmHg, 15:18:18 Deflation Rate=5 mmHg, Cuff placed on Right Arm 15:18:22 Bilateral groins prepped with 2% chlorhexidine, and draped after a 3 minute waiting time. 15:19:30 HR=63 bpm, QRJP=269/87 mmhg, SpO2=97.0 %, Resp=21 B/min, Pain=0, Dixie=10, Wilson=2 15:20:16 50 mg SOLU-CORTEF given in lab by David Delatorre RN in Right Hand via Peripheral IV. 15:22:09 Pressure channel 1 zeroed. 15:24:01 HR=72 bpm, XOKA=859/99 mmhg, SpO2=97.0 %, Resp=10 B/min, Pain=0, Dixie=10, Wilson=2 15:25:15 MD paged 15:29:02 HR=81 bpm, GMMN=221/83 mmhg, SpO2=97.0 %, Resp=8 B/min, Pain=0, Dixie=10, Wilson=2 15:30:13 MD arrived. Time Out. Correct patient, correct procedure, correct physician, power injector loaded, or not loaded with contrast with 15:32:00 surgical team present. Time Out Concurred by MD and individual staff in procedure. 15:32:27 2 mg VERSED given in lab by David Delatorre RN in Right Hand via Peripheral IV. 15:32:30 Case Start 15:33:02 20 mL 1% XYLOCAINE given in lab by Geoff Shelby in Right Groin via Subcutaneous. 15:33:45 50 mcg FENTANYL given in lab by Geoff Shelby in Right Hand via Peripheral IV. 15:33:53 Access site was Right Femoral Artery. 15:34:03 HR=82 bpm, JMZJ=019/83 mmhg, SpO2=96.0 %, Resp=12 B/min, Pain=0, Dixie=10, Wilson=2 15:34:16 A SHEATH, FR6.5 PRELUDE 11CM FR 6.5 was advanced into the Fem Art (right) using the Percuta neous technique. A JL 4.0 INFINITI CATHETER FR 6 was advanced over a wire. OMNIPAQUE, 350 MG, 150ML 150ML was us ed for 15:35:29 injections. 15:36:12 8500 units HEPARIN given in lab by David Delatorre RN in Right Hand via Peripheral IV. Recorded Pressure: Ao, HR=82, Condition=Condition 1 15:37:03 (Aorta) Ao 132/69/96 15:37:44 The LCA was injected and visualized at various angles. OMNIPAQUE, 350 MG, 150ML 150ML used . 15:39:00 HR=79 bpm, DIDT=146/84 mmhg, SpO2=95.0 %, Resp=10 B/min, Pain=0, Dixie=10, Wilson=2 15:39:10 Catheter was removed A HS SH GUIDE CATHETER FR 6 was advanced over a wire. OMNIPAQUE, 350 MG, 150ML 150ML was used f or 15:40:02 injections. 15:41:01 The RCA was injected and visualized at various angles. OMNIPAQUE, 350 MG, 150ML 150ML used . 15:42:03 Activated Clotting Time Drawn 15:43:55 HR=87 bpm, JVSH=100/107 mmhg, SpO2=97.0 %, Resp=9 B/min, Pain=0, Dixie=10, Wilson=2 15:45:10 A PRIME WIRE, VERRATA 185CM 185CM was inserted via Fem Art (right). 15:46:55 ACT (Normal Range 90-180) = 264 15:47:30 50 mcg FENTANYL given in lab by Geoff Shelby in Right Hand via Peripheral IV. 15:49:39 HR=90 bpm, XMGC=401/79 mmhg, SpO2=96.0 %, Resp=9 B/min, Pain=0, Dixie=10, Wilson=2 140 mcg/kg/min ADENOSINE DRIP given in lab by David Delatorre RN in Right Hand via Peripheral IV. Pump/Drip Flow = 15:52:21 995.4 ml/hr using NaCl .9 with a concentration of 90 mg in 90 ml. 15:53:53 Flow Wire was was placed in the RCA. The FFR measures 93 percent. The IFR measures 99 Perc ent. 15:53:59 HR=64 bpm, YEAV=591/80 mmhg, SpO2=96.0 %, Resp=16 B/min, Pain=0, Dixie=10, Wilson=2 15:55:29 140 units/hr ADENOSINE DRIP STOPPED given in lab by David Delatorre RN. Pump/Drip Flow = 0 ml/ hr using D5W. 15:56:45 Wire removed 15:56:58 Catheter was removed A PIGTAIL ANG. 145 INFINITI CATHETER FR 6 was advanced over a wire. OMNIPAQUE, 350 MG, 150ML 15 0ML was 15:58:18 used for injections. Recorded Pressure: LV, HR=80, Condition=Condition 1 15:58:43 (Left Ventricle) LV 141/4/20 15:59:00 HR=78 bpm, LNZV=870/76 mmhg, SpO2=95.0 %, Resp=11 B/min, Pain=0, Dixie=10, Wilson=2 15:59:03 The LV was injected at 10 cc/sec for a total of 30. OMNIPAQUE, 350 MG, 50ML 50ML used. Recorded Pressure: LV, Ao, HR=80, Condition=Condition 1 16:00:07 (Left Ventricle) LV 161/-3/16, (Aorta) Ao 148/69/105 16:00:16 Catheter was removed 16:01:59 An injection in the Fem Art (right) was made through the SHEATH, FR6.5 PRELUDE 11CM FR 6.5. 16:02:07 VASCADE, FR6 CLOSURE SYSTEM TAVR FR 6\7 placement in the Fem Art (right) 16:02:52 Case End Assessment: Final Case, HR=79 BPM, Rhythm=Paced, XFML=657/76 mmhg, Chest Pain=0, Edema=None, Color=Normal, Skin = Warm, Dry Right Pulses: Barrett Ped=2, Femoral=2 16:02:55 Left Pulses: Barrett Ped=2, Femoral=2 Neurological: State=Alert, Ox3, DENT Respiration: Resp=27 B/min, SpO2=97 %, O2=0 lpm 16:03:06 Catheter(s) removed without difficulty 16:03:10 Sterile dressing applied to site 16:03:11 No case complications noted. 16:03:12 Cine recording checked. 16:03:16 Bedside Report will be given. 16:03:17 Implantable Device card placed in patient's chart. 16:03:18 Contrast Scanned 16:03:26 A Left Heart Cath was performed. 16:04:03 HR=68 bpm, BTAD=714/73 mmhg, SpO2=94.0 %, Resp=18 B/min, Pain=0, Dixie=10, Wilson=2 16:08:53 Vitals capture stopped. End Study - Contrast Media Used In Study Contrast Total Opened (mL) Total Used (mL) Total Wasted (mL) Omnipaque 100 100 0 End Study - Maximum Contrast Load Max Contrast Load (mL) 846.4 End Study - Radiation Exposure Fluoro Time (minutes) 4.5 End Study - Patient Disposition Complications Transferred To Interventional Outcome No Medical Reimbursement Manager Holding No attempt made
[2017-07-22] MEDS ORDERED: SODIUM CHLOR 0.9% 1000 ML INJ 1,000 ML IV ONE (16:18)
[2017-07-22] MEDS ORDERED: ONDANSETRON HCL 4 MG/2 ML VIAL IV PUSH PRN (16:30)
[2017-07-22] MEDS ORDERED: SODIUM CHLOR 0.9% 250 ML INJ 250 ML IV PRN (16:30)
[2017-07-22] MEDS ORDERED: ATROPINE SULFATE 1 MG/ML VIAL IVP PRN (16:30)
--- NOTE | 2017-07-22 16:33 | MA ---
cc: TEAGAN FREDERICK M.D. DATE 07/22/17 PROCEDURE Left heart catheterization, selective coronary angiography, left ventriculography, fractional flow reserve measurement of the right coronary artery. PROCEDURE NOTE The patient was brought to the cardiac catheterization laboratory in a fasting state after having signed informed consent. The right groin was prepped and draped as per policy and anesthetized with 1% lidocaine. Arterial access was obtained via the right femoral artery and a 6-Spanish sheath placed. Coronary arteriography was performed using 6-Spanish Gabe left 4.0 and hockey stick guide with side holes catheters. Left ventriculography was done using an angled pigtail. Fractional flow reserve measurement was done as described below. There were no apparent immediate complications. His arteriotomy site was closed with Vascade. HEMODYNAMIC RESULTS Left ventricle 160 with an end-diastolic pressure of 15. Aorta 148/69 with a mean of 105. There was no significant transvalvular aortic gradient on pullback of the pigtail catheter. CORONARY ARTERIOGRAPHY The left main is normal. The left anterior descending gives rise to a large diagonal which has a widely patent stent in its proximal portion. There is also a widely patent stent in the proximal LAD. There is diffuse disease of the proximal LAD resulting in up to 15% stenosis. In the mid LAD there are minimal luminal irregularities. The distal LAD is tortuous but free of disease. The left circumflex is a small vessel giving rise to two large obtuse marginals, the first of which has a widely patent stent proximally. At the ostium of the first obtuse marginal there is up to 50% stenosis. Between the takeoffs of the obtuse marginals the left circumflex has up to 30% stenosis. The second obtuse marginal overall has minimal disease. The right coronary artery is a fairly large dominant vessel with minimal luminal irregularities in the proximal to midportion. There may be as much as 10% stenosis in the mid right coronary. In the distal right coronary, just past the takeoff of a large posterior descending artery, the right coronary has possibly up to 60% stenosis. The posterior descending artery has minimal luminal irregularities. LEFT VENTRICULOGRAPHY Contrast injection of the left ventricle reveals no segmental wall motion abnormalities. Ejection fraction is estimated at 60%. FRACTIONAL FLOW RESERVE (FFR) MEASUREMENT: Adequate heparin was given during the procedure to achieve an ACT of 260 seconds. Using a 6-Spanish hockey-stick guiding catheter with side holes the ostium of the right coronary artery was engaged. The pressure wire was normalized and then advanced distal to the lesion which is just past the origin of the posterior descending artery. The IFR was measured at 0.99. At this point we decided to also perform fractional flow reserve measurement. Adenosine, 140 mcg/kg per minute, was infused over 3 minutes. The FFR was measured at 0.93. The patient tolerated the procedures well. There were no apparent immediate complications. CONCLUSION 1. Overall mild to moderate three-vessel coronary artery disease with widely patent stents in the proximal LAD, proximal diagonal, proximal first obtuse marginal. 2. Normal left ventricular function with estimated ejection fraction of 60%. 3. Status post fractional flow reserve measurement of the distal right coronary demonstrating the absence of hemodynamically significant disease in this region. MD TRISTAN Napoles/PURNIMA /4:10 PM /4:19 PM GM
--- NOTE | 2017-07-22 16:33 | MA ---
cc: TEAGAN FREDERICK M.D. DATE 07/22/17 PROCEDURE Left heart catheterization, selective coronary angiography, left ventriculography, fractional flow reserve measurement of the right coronary artery. PROCEDURE NOTE The patient was brought to the cardiac catheterization laboratory in a fasting state after having signed informed consent. The right groin was prepped and draped as per policy and anesthetized with 1% lidocaine. Arterial access was obtained via the right femoral artery and a 6-Botswanan sheath placed. Coronary arteriography was performed using 6-Botswanan Gabe left 4.0 and hockey stick guide with side holes catheters. Left ventriculography was done using an angled pigtail. Fractional flow reserve measurement was done as described below. There were no apparent immediate complications. His arteriotomy site was closed with Vascade. HEMODYNAMIC RESULTS Left ventricle 160 with an end-diastolic pressure of 15. Aorta 148/69 with a mean of 105. There was no significant transvalvular aortic gradient on pullback of the pigtail catheter. CORONARY ARTERIOGRAPHY The left main is normal. The left anterior descending gives rise to a large diagonal which has a widely patent stent in its proximal portion. There is also a widely patent stent in the proximal LAD. There is diffuse disease of the proximal LAD resulting in up to 15% stenosis. In the mid LAD there are minimal luminal irregularities. The distal LAD is tortuous but free of disease. The left circumflex is a small vessel giving rise to two large obtuse marginals, the first of which has a widely patent stent proximally. At the ostium of the first obtuse marginal there is up to 50% stenosis. Between the takeoffs of the obtuse marginals the left circumflex has up to 30% stenosis. The second obtuse marginal overall has minimal disease. The right coronary artery is a fairly large dominant vessel with minimal luminal irregularities in the proximal to midportion. There may be as much as 10% stenosis in the mid right coronary. In the distal right coronary, just past the takeoff of a large posterior descending artery, the right coronary has possibly up to 60% stenosis. The posterior descending artery has minimal luminal irregularities. LEFT VENTRICULOGRAPHY Contrast injection of the left ventricle reveals no segmental wall motion abnormalities. Ejection fraction is estimated at 60%. FRACTIONAL FLOW RESERVE (FFR) MEASUREMENT: Adequate heparin was given during the procedure to achieve an ACT of 260 seconds. Using a 6-Botswanan hockey-stick guiding catheter with side holes the ostium of the right coronary artery was engaged. The pressure wire was normalized and then advanced distal to the lesion which is just past the origin of the posterior descending artery. The IFR was measured at 0.99. At this point we decided to also perform fractional flow reserve measurement. Adenosine, 140 mcg/kg per minute, was infused over 3 minutes. The FFR was measured at 0.93. The patient tolerated the procedures well. There were no apparent immediate complications. CONCLUSION 1. Overall mild to moderate three-vessel coronary artery disease with widely patent stents in the proximal LAD, proximal diagonal, proximal first obtuse marginal. 2. Normal left ventricular function with estimated ejection fraction of 60%. 3. Status post fractional flow reserve measurement of the distal right coronary demonstrating the absence of hemodynamically significant disease in this region. MD TRISTAN Napoles/PURNIMA /4:10 PM /4:19 PM GM
--- NOTE | 2017-07-22 16:33 | MA ---
cc: TEAGAN FREDERICK M.D. DATE 07/22/17 PROCEDURE Left heart catheterization, selective coronary angiography, left ventriculography, fractional flow reserve measurement of the right coronary artery. PROCEDURE NOTE The patient was brought to the cardiac catheterization laboratory in a fasting state after having signed informed consent. The right groin was prepped and draped as per policy and anesthetized with 1% lidocaine. Arterial access was obtained via the right femoral artery and a 6-Dominican sheath placed. Coronary arteriography was performed using 6-Dominican Gabe left 4.0 and hockey stick guide with side holes catheters. Left ventriculography was done using an angled pigtail. Fractional flow reserve measurement was done as described below. There were no apparent immediate complications. His arteriotomy site was closed with Vascade. HEMODYNAMIC RESULTS Left ventricle 160 with an end-diastolic pressure of 15. Aorta 148/69 with a mean of 105. There was no significant transvalvular aortic gradient on pullback of the pigtail catheter. CORONARY ARTERIOGRAPHY The left main is normal. The left anterior descending gives rise to a large diagonal which has a widely patent stent in its proximal portion. There is also a widely patent stent in the proximal LAD. There is diffuse disease of the proximal LAD resulting in up to 15% stenosis. In the mid LAD there are minimal luminal irregularities. The distal LAD is tortuous but free of disease. The left circumflex is a small vessel giving rise to two large obtuse marginals, the first of which has a widely patent stent proximally. At the ostium of the first obtuse marginal there is up to 50% stenosis. Between the takeoffs of the obtuse marginals the left circumflex has up to 30% stenosis. The second obtuse marginal overall has minimal disease. The right coronary artery is a fairly large dominant vessel with minimal luminal irregularities in the proximal to midportion. There may be as much as 10% stenosis in the mid right coronary. In the distal right coronary, just past the takeoff of a large posterior descending artery, the right coronary has possibly up to 60% stenosis. The posterior descending artery has minimal luminal irregularities. LEFT VENTRICULOGRAPHY Contrast injection of the left ventricle reveals no segmental wall motion abnormalities. Ejection fraction is estimated at 60%. FRACTIONAL FLOW RESERVE (FFR) MEASUREMENT: Adequate heparin was given during the procedure to achieve an ACT of 260 seconds. Using a 6-Dominican hockey-stick guiding catheter with side holes the ostium of the right coronary artery was engaged. The pressure wire was normalized and then advanced distal to the lesion which is just past the origin of the posterior descending artery. The IFR was measured at 0.99. At this point we decided to also perform fractional flow reserve measurement. Adenosine, 140 mcg/kg per minute, was infused over 3 minutes. The FFR was measured at 0.93. The patient tolerated the procedures well. There were no apparent immediate complications. CONCLUSION 1. Overall mild to moderate three-vessel coronary artery disease with widely patent stents in the proximal LAD, proximal diagonal, proximal first obtuse marginal. 2. Normal left ventricular function with estimated ejection fraction of 60%. 3. Status post fractional flow reserve measurement of the distal right coronary demonstrating the absence of hemodynamically significant disease in this region. MD TRISTAN Napoles/PURNIMA /4:10 PM /4:19 PM GM
--- NOTE | 2017-07-22 21:13 | EKG ---
Date Performed: 07/22/2017 Time Performed: 13:43:10 PTAGE: 71 years EKG: Sinus rhythm with 1st degree A-V block Intermittent LBBB LVH with secondary repolarization abnormality Extensive ST-T changes Abnormal ECG PREVIOUS TRACING : 10/16/2016 08.59 Compared to the previous tracing intermittent LBBB present DOCTOR: Donna Cano Interpretating Date/Time 07/22/2017 21:10:54
== END 2017-07-22 18:54 | disposition home or self-care (01) ==
LOC: HDIC 12:51 → HDOC 12:51
PROVIDERS: ATTEND Internal Medicine Cardiovascular Disease
DX: I25.10 Atherosclerotic heart disease of native coronary artery without angina pectoris (principal); I10 Essential (primary) hypertension; I42.9 Cardiomyopathy, unspecified; I48.0 Paroxysmal atrial fibrillation; E78.5 Hyperlipidemia, unspecified; Z79.01 Long term (current) use of anticoagulants
CPT/HCPCS: 80048; 85002; 85025; 85610; 85730; 93005; 93458; 93571; 99152; 99153; C1760; C1769; C1887; C1893; G0269; J0153; J1644; J1720; J2250; J3010; J0583; Q9967